=== PATIENT | female | born 1995 | race American Indian/Alaskan Native ===

== ENCOUNTER 2017-02-15 18:23 | Emergency (ER) | payer OTHER ==
[2017-02-15 19:18] LABS: Hematocrit 36.1 % (30.3-42.9); Hemoglobin 11.7 gm/dl (10.1-14.3); Mean Corpuscular HGB Conc 32 % (30-34); Mean Corpuscular Volume 78 fl (79-97); Platelet Count 374 K/mm3 (140-440); Red Blood Count 4.64 M/mm3 (3.65-5.03); Red Cell Distribution Width 15.1 % (13.2-15.2); White Blood Count 9.1 K/mm3 (4.5-11.0)
[2017-02-15 19:22] LABS: Mean Corpuscular Hemoglobin 25 pg (28-32)
[2017-02-15 19:28] LABS: Anion Gap 20 mmol/L; BUN/Creatinine Ratio 13.33; Blood Urea Nitrogen 8 mg/dL (7-17); Calcium 9.3 mg/dL (8.4-10.2); Carbon Dioxide 20 mmol/L (22-30); Chloride 98.4 mmol/L (98-107); Glucose 143 mg/dL (65-100); Potassium 3.9 mmol/L (3.6-5.0); Sodium 134 mmol/L (137-145)
--- NOTE | 2017-02-15 20:11 | Ultrasound Report ---
FINAL REPORT EXAM: US OB TRANSVAGINAL HISTORY: pain during COMPARISONS: None. FINDINGS: Transvaginal grayscale, color Doppler and M-mode ultrasound evaluation of the pelvis A single intrauterine is present on the basis of a gestational sac containing a 2 millimeter normal appearing yolk sac. Mean sac diameter of about 9 millimeters corresponds to estimated gestational age of 5 weeks 5 days and delivery date of 10/13/2017. No significant free fluid in the pelvis. Right ovary measures 4.6 x 3.5 x 2.6 cm and demonstrates normal echotexture. The left ovary is not visualized on this exam. Nabothian cysts noted. IMPRESSION: Intrauterine without pole identified at this time. Estimated gestational age is 5 weeks 5 days. Short interval clinical and sonographic follow-up is recommended.
--- NOTE | 2017-02-15 20:13 | Ultrasound Report ---
FINAL REPORT EXAM: US OB \T\lt; = 14 WEEKS FETUS HISTORY: pain during COMPARISONS: Transvaginal ultrasound of the same date. FINDINGS: Transabdominal grayscale and color Doppler ultrasound evaluation of the pelvis Uterus measures 8.3 x 5 x 5.9 cm. No intrauterine seen on transabdominal examination. No significant free fluid in the pelvis. Right ovary measures 4.6 x 3.5 x 2.6 cm and demonstrates normal echotexture. The left ovary is not visualized on this exam. Nabothian cysts noted. IMPRESSION: Intrauterine is demonstrated on transvaginal ultrasound only. Please see transvaginal ultrasound report of the same date.
[2017-02-15 20:19] LABS: Bilirubin,Urine NEG (Negative); Blood,Urine SM (Negative); Ketones,Urine NEG (Negative); Leukocyte Esterase,Urine SM (Negative); Mucus,Urine FEW /HPF; Nitrite,Urine NEG (Negative); Protein,Urine <15 mg/dL mg/dL (Negative); Urobilinogen,Urine < 2.0 mg/dL (<2.0)
[2017-02-15 21:10] VITALS: BP 125/64
--- NOTE | 2017-02-15 21:26 | Emergency Department Report ---
HPI - General Chief Complaint: Urogenital-Female Time Seen by Provider: 02/15/17 21:15 - HPI HPI: Room 2 Patient is a 21-year-old female presenting with a chief complaint of abdominal pain. The patient states for the past 2 days she's had intermittent lower abdominal pain described as severe menstrual cramps. Patient states her last cycle occurred 01/01/2017. The patient states she had a positive home test that has not yet seen an [facility]. Patient denies vaginal bleeding , dysuria or fever. Patient admits to occasional nausea vomiting. The patient currently denies complaints Location: Lower Abdomen Duration: 2 days Quality: Cramping Severity: Currently 0/10 Modifying factors: [see above] Context: [see above] Mode of transportation: [not driving] ED Past Medical Hx - Past Medical History Additional medical history: ovarian cyst,fibroids - Surgical History Past Surgical History?: No - Family History Family history: no significant - Social History Smoking Status: Never Smoker Substance Use Type: None - Medications Home Medications: Home Medications Medication Instructions Recorded Confirmed Last Taken Type No Known Home Medications [No 02/15/17 02/15/17 Unknown History Reported Home Medications] ED Review of Systems ROS: Stated complaint: / STOMACH PAINS Other details as noted in HPI Comment: All other systems reviewed and negative Constitutional: denies: chills, fever Eyes: denies: eye pain, eye discharge, vision change ENT: denies: ear pain, throat pain Respiratory: denies: cough, shortness of breath, wheezing Cardiovascular: denies: chest pain, palpitations Endocrine: no symptoms reported Gastrointestinal: abdominal pain, nausea, vomiting Genitourinary: denies: urgency, dysuria, discharge Musculoskeletal: denies: back pain, joint swelling, arthralgia Skin: denies: rash, lesions Neurological: denies: headache, weakness, paresthesias Psychiatric: denies: anxiety, depression Hematological/Lymphatic: denies: easy bleeding, easy bruising Physical Exam - Physical Exam Vital Signs: Vital Signs 02/15/17 02/15/17 18:47 21:09 Temperature 98.5 F 98.3 F Pulse Rate 87 84 Respiratory 18 16 Rate Blood Pressure 121/61 Blood Pressure 125/64 [Right] O2 Sat by Pulse 100 100 Oximetry Physical Exam: GENERAL: The patient is well-developed well-nourished female walking into the room not appearing to be in acute distress. [] HEENT: Normocephalic. Atraumatic. Extraocular motions are intact. Patient has moist mucous membranes. NECK: Supple. Trachea Midline CHEST/LUNGS: Clear to auscultation. There is no respiratory distress noted. HEART/CARDIOVASCULAR: Regular. There is no tachycardia. There is no gallop rub or murmur. ABDOMEN: Abdomen is soft, nontender. Patient has normal bowel sounds. There is no abdominal distention. SKIN: There is no rash. There is no edema. There is no diaphoresis. NEURO: The patient is awake, alert, and oriented. The patient is cooperative. The patient has normal speech and gait MUSCULOSKELETAL: There is no evidence of acute injury. ED Course Vital Signs 02/15/17 02/15/17 18:47 21:09 Temperature 98.5 F 98.3 F Pulse Rate 87 84 Respiratory 18 16 Rate Blood Pressure 121/61 Blood Pressure 125/64 [Right] O2 Sat by Pulse 100 100 Oximetry ED Medical Decision Making - Lab Data Result diagrams: 02/15/17 18:54 02/15/17 18:54 Laboratory Tests 02/15/17 02/15/17 02/15/17 18:54 18:54 18:54 WBC 9.1 RBC 4.64 Hgb 11.7 Hct 36.1 MCV 78 L MCH 25 L MCHC 32 RDW 15.1 Plt Count 374 Sodium 134 L Potassium 3.9 Chloride 98.4 Carbon Dioxide 20 L Anion Gap 20 BUN 8 Creatinine 0.6 L Estimated GFR > 60 BUN/Creatinine Ratio 13.33 Glucose 143 H Calcium 9.3 HCG, Quant 5503 H Urine Color Urine Turbidity Urine pH Ur Specific [place] Urine Protein Urine Glucose (UA) Urine Ketones Urine Blood Urine Nitrite Urine Bilirubin Urine Urobilinogen Ur Leukocyte Esterase Urine WBC (Auto) Urine RBC (Auto) U Epithel Cells (Auto) Urine Mucus Blood Type Ord Rhogam Gestat Weeks 02/15/17 02/15/17 18:54 19:58 WBC RBC Hgb Hct MCV MCH MCHC RDW Plt Count Sodium Potassium Chloride Carbon Dioxide Anion Gap BUN Creatinine Estimated GFR BUN/Creatinine Ratio Glucose Calcium HCG, Quant Urine Color Yellow Urine Turbidity Slightly-cloudy Urine pH 6.0 Ur Specific [place] 1.010 Urine Protein <15 mg/dl Urine Glucose (UA) Neg Urine Ketones Neg Urine Blood Sm Urine Nitrite Neg Urine Bilirubin Neg Urine Urobilinogen < 2.0 Ur Leukocyte Esterase Sm Urine WBC (Auto) 5.0 Urine RBC (Auto) 1.0 U Epithel Cells (Auto) 13.0 Urine Mucus Few Blood Type O POSITIVE Ord Rhogam Gestat Weeks Rh pos - Radiology Data Radiology results: report reviewed (pelvic ultrasound), image reviewed (pelvic ultrasound) Pelvic ultrasound (read by radiologist)-intrauterine without pole identified at this time. Estimated gestational age of 5 weeks 5 days. Short interval clinical and sonographic follow-up is recommended. - Differential Diagnosis ectopic , , UTI Critical care attestation.: If time is entered above; I have spent that time in minutes in the direct care of this critically ill patient, excluding procedure time. ED Disposition Clinical Impression: , Abdominal pain Disposition: DISCHARGED TO HOME OR SELFCARE Is pt being admited?: No Does the pt Need Aspirin: No Condition: Stable Instructions: (ED) Additional Instructions: Return to the emergency department immediately should you develop worsening symptoms, fever, inability to tolerate food or liquid or any other concerns. Referrals: GIL JIMENEZ MD [Staff Physician] - 2-3 Days (Dr. Jimenez is an [facility]. Please follow up with him for further evaluation) Time of Disposition: 21:23
== END 2017-02-15 21:33 | disposition home or self-care (01) ==
LOC: ED 18:23
DX: O21.9 Vomiting of pregnancy, unspecified (principal); R10.9 Unspecified abdominal pain; Z3A.01 Less than 8 weeks gestation of pregnancy
CPT/HCPCS: 36415; 76801; 76817; 80048; 81001; 84702; 85027; 86900; 86901

== ENCOUNTER 2017-02-22 16:37 | Emergency (ER) | payer SELFPAY ==
[2017-02-22] MEDS ORDERED: TYLENOL PO ONE (21:35)
--- NOTE | 2017-02-22 21:37 | Emergency Department Report ---
ED General Adult HPI - General Chief complaint: Abdominal Pain Stated complaint: LF SIDE JAW/NECK SWOLLEN/ABD PAIN Time Seen by Provider: 02/22/17 21:21 Source: patient, RN notes reviewed, old records reviewed Mode of arrival: Ambulatory Limitations: No Limitations - History of Present Illness Initial comments: This is a 21-year-old female. She is previously unknown to me. She is 2, para 0. Last menstrual period is January 01. Does not currently have a strategic insights lead. Patient seen in this department on February 05 her abdominal cramping, had an ultrasound that demonstrated an intrauterine without pole identified, gestational age 5 weeks and 5 days. The patient presents to the ER with left-sided neck swelling, adenopathy, throat discomfort. This has been going on for the past few days. Mild cough. No chest pain, no shortness of breath, no tinnitus, no vertigo. Also has left- sided paracervical neck pain. Pain is crampy, increases with palpation, range of motion, decreases with rest. There is no stridor or dysphonia. The patient admits to chronic lower abdominal cramping, no vaginal bleeding. She denies irritative and obstructive urinary symptoms. This is chronic. This is not new, worse or different. -: Gradual Location: neck, abdomen Quality: aching Consistency: intermittent Improves with: rest Worsens with: movement Associated Symptoms: cough. denies: confusion, chest pain, headaches, loss of appetite, malaise, nausea/vomiting, shortness of breath - Related Data Previous Rx's Medication Instructions Recorded Last Taken Type Doxylamine/Pyridoxine HCl 1 each PO QHS PRN #30 tablet. 02/22/17 Unknown Rx [Susana Cope 10-10 mg Tablet] Vit W-Ca,Fe,FA(<1 mg) 1 each PO QDAY #30 tablet 02/22/17 Unknown Rx [ Vitamins] Allergies Allergy/AdvReac Type Severity Reaction Status Date / Time No Known Allergies Allergy Verified 02/22/17 16:46 ED Review of Systems ROS: Stated complaint: LF SIDE JAW/NECK SWOLLEN/ABD PAIN Other details as noted in HPI Constitutional: denies: fever Eyes: denies: vision change ENT: ear pain, congestion Respiratory: denies: cough Cardiovascular: denies: chest pain Gastrointestinal: denies: nausea, vomiting Genitourinary: denies: dysuria Musculoskeletal: denies: back pain Skin: denies: lesions Neurological: denies: weakness Psychiatric: denies: anxiety ED Past Medical Hx - Past Medical History Previous Medical History?: No Additional medical history: ovarian cyst,fibroids - Surgical History Past Surgical History?: No - Social History Smoking Status: Never Smoker Substance Use Type: None - Medications Home Medications: Home Medications Medication Instructions Recorded Confirmed Last Taken Type Doxylamine/Pyridoxine HCl 1 each PO QHS PRN #30 tablet. 02/22/17 Unknown Rx [Diclegis Dr 10-10 mg Tablet] Vit W-Ca,Fe,FA(<1 mg) 1 each PO QDAY #30 tablet 02/22/17 Unknown Rx [ Vitamins] ED Physical Exam - General Limitations: No Limitations General appearance: alert, in no apparent distress - Head Head exam: Present: atraumatic, normocephalic - Eye Eye exam: Present: normal appearance, PERRL, EOMI. Absent: nystagmus - ENT ENT exam: Present: normal exam, mucous membranes dry, mucous membranes moist, TM 's normal bilaterally, normal external ear exam, other (there is left-sided paracervical neck discomfort. There is left-sided adenopathy. There is no stridor, dysphonia or dysphagia. There is no tenderness beneath the tongue. There is no elevation of the base of the tongue.) - Neck Neck exam: Present: normal inspection, full ROM, lymphadenopathy. Absent: tenderness, meningismus - Respiratory Respiratory exam: Present: normal lung sounds bilaterally. Absent: respiratory distress, wheezes, rales, rhonchi, stridor, chest wall tenderness, accessory muscle use, decreased breath sounds, prolonged expiratory - Cardiovascular Cardiovascular Exam: Present: regular rate, normal rhythm, normal heart sounds. Absent: bradycardia, tachycardia, irregular rhythm, systolic murmur, diastolic murmur, rubs, gallop - GI/Abdominal GI/Abdominal exam: Present: soft, normal bowel sounds. Absent: distended, tenderness, guarding, rebound, rigid, pulsatile mass - Extremities Exam Extremities exam: Present: normal inspection, full ROM, normal capillary refill. Absent: tenderness, pedal edema, joint swelling, calf tenderness - Back Exam Back exam: Present: normal inspection, full ROM. Absent: tenderness, CVA tenderness (R), CVA tenderness (L), muscle spasm, paraspinal tenderness, vertebral tenderness - Neurological Exam Neurological exam: Present: alert, oriented X3, normal gait, other (Extraocular movements intact. Tongue midline. No facial droop. Facial sensation intact to light touch in the V1, V2, V3 distribution bilaterally. 5 and 5 strength in 4 extremities.. Sensation is intact to light touch in 4 extremities.). Absent : motor sensory deficit - Psychiatric Psychiatric exam: Present: normal affect, normal mood - Skin Skin exam: Present: warm, dry, intact, normal color. Absent: rash ED Course Vital Signs 02/22/17 02/22/17 16:46 21:46 Temperature 98.4 F Pulse Rate 84 87 Respiratory 18 19 Rate Blood Pressure 142/70 Blood Pressure 120/67 [Left] O2 Sat by Pulse 100 100 Oximetry - Reevaluation(s) Reevaluation #1: 02/22/17 22:36 differential diagnosis: Adenopathy, viral syndrome, incidental , urinary tract infection Assessment and plan: 21-year-old female with nonspecific adenopathy. She is afebrile with reassuring vital signs, her pharyngeal and ear exams are unremarkable, there is no mastoid tenderness, no obvious vesicles, no obvious cellulitis, there is no clinical indication of severe or dangerous upper airway process at this time. At this point in time, I dont believe she needs blood work or advanced imaging, she felt improved after acetaminophen. Her abdominal exam is benign, my transabdominal ultrasound confirms the presence of her intrauterine which was demonstrated last week, and a urinalysis is within normal limits. At this point in time, it does not appear that there is any emergent condition, the patient is suitable to follow up with outpatient [facility]. She will be discharged at this time. ED Medical Decision Making - Lab Data Vital Signs 02/22/17 02/22/17 16:46 21:46 Temperature 98.4 F Pulse Rate 84 87 Respiratory 18 19 Rate Blood Pressure 142/70 Blood Pressure 120/67 [Left] O2 Sat by Pulse 100 100 Oximetry Lab Results 02/22/17 Range/Units 21:39 Urine Color Yellow (Yellow) Urine Turbidity Slightly-cloudy (Clear) Urine pH 7.0 (5.0-7.0) Ur Specific [place] 1.008 (1.003-1.030) Urine Protein <15 mg/dl (Negative) mg/dL Urine Glucose (UA) Neg (Negative) mg/dL Urine Ketones Neg (Negative) mg/dL Urine Blood Neg (Negative) Urine Nitrite Neg (Negative) Urine Bilirubin Neg (Negative) Urine Urobilinogen < 2.0 (<2.0) mg/dL Ur Leukocyte Esterase Tr (Negative) Urine WBC (Auto) 3.0 (0.0-6.0) /HPF Urine RBC (Auto) 1.0 (0.0-6.0) /HPF U Epithel Cells (Auto) 12.0 (0-13.0) /HPF Urine Bacteria (Auto) 2+ (Negative) /HPF Urine Mucus Few /HPF Critical care attestation.: If time is entered above; I have spent that time in minutes in the direct care of this critically ill patient, excluding procedure time. ED Disposition Clinical Impression: , Adenopathy Disposition: DISCHARGED TO HOME OR SELFCARE Is pt being admited?: No Does the pt Need Aspirin: No Condition: Stable Instructions: (ED), Adenitis (ED) Additional Instructions: Taken nausea medication and vitamins and nausea medication as needed/ directed. Follow-up with the any the listed gynecology specialist to initiate care. Return to the ER right away with new pain, worsened pain, migration of pain, fevers or chills, nausea or vomiting, inability to tolerate liquid feeds. Do not take Motrin, ibuprofen, Aleve, aspirin. Apply warm compresses to the affected area. Take acetaminophen/Tylenol every 4-6 hours as needed for pain. Prescriptions: Doxylamine/Pyridoxine HCl [Susana Cope 10-10 mg Tablet] 1 each PO QHS PRN #30 tablet.dr PAREDES Reason: Nausea Vit W-Ca,Fe,FA(<1 mg) [ Vitamins] 1 each PO QDAY #30 tablet Referrals: PRIMARY CARE, [Primary Care Provider] - 3-5 Days [facility] [Provider Group] - 3-5 Days [facility] [Provider Group] - 3-5 Days [facility] [Provider Group] - 3-5 Days
[2017-02-22 21:46] VITALS: BP 120/67
[2017-02-22 22:30] LABS: Bacteria,Urine 2+ /HPF (Negative); Bilirubin,Urine NEG (Negative); Blood,Urine NEG (Negative); Ketones,Urine NEG (Negative); Leukocyte Esterase,Urine TR (Negative); Mucus,Urine FEW /HPF; Nitrite,Urine NEG (Negative); Protein,Urine <15 mg/dL mg/dL (Negative); Urobilinogen,Urine < 2.0 mg/dL (<2.0)
== END 2017-02-22 22:47 | disposition home or self-care (01) ==
LOC: ED 16:37
DX: O26.891 Other specified pregnancy related conditions, first trimester (principal); R59.9 Enlarged lymph nodes, unspecified; Z3A.01 Less than 8 weeks gestation of pregnancy
CPT/HCPCS: 81001; 99283